=== PATIENT | female | born 1950 | race Hispanic/Latino ===

== ENCOUNTER 2025-09-24 22:24 | Emergency (ER) | payer OTHER ==
[~2025-09-24] VITALS: Ht 162.6 cm; Wt 82.6 kg
[2025-09-24 23:58] VITALS: BP 142/66; PULSE 88; RESP 20; TEMP 98.8; O2SAT 99
--- NOTE | 2025-09-25 00:15 | HMCIMG ---
EXAM: CR Right Wrist, 3 views CLINICAL HISTORY: Fall. COMPARISON: None provided. FINDINGS: Nondisplaced acute fracture in the ulnar styloid process. Questionable nondisplaced acute transverse fracture around the distal metaphysis of the radius. Mild to moderate osteoarthritis. Mild diffuse soft tissue swelling around the wrist. The remaining bones are intact. IMPRESSION: Nondisplaced acute fracture in the ulnar styloid process. Questionable nondisplaced acute transverse fracture around the distal metaphysis of the radius. /[place]
--- NOTE | 2025-09-25 00:17 | HMCIMG ---
EXAM: CR Right Elbow, 3 views CLINICAL HISTORY: Fall. COMPARISON: None provided. FINDINGS: No acute fracture or aggressive appearing osseous lesion. Mild osteopenia. Mild osteoarthritis. Enthesopathy around the common extensor origin. IMPRESSION: No acute bony abnormality is evident. Degenerative changes. /[place]
--- NOTE | 2025-09-25 00:18 | HMCIMG ---
EXAM: CR Right Shoulder, 2 views CLINICAL HISTORY: Pain. COMPARISON: None provided. FINDINGS: No acute fracture or aggressive appearing osseous lesion. Mild osteopenia. Moderate osteoarthritis in the acromioclavicular joint. Mild osteoarthritis in the glenohumeral joint. The soft tissues are unremarkable. IMPRESSION: No acute bony abnormality is evident. Degenerative changes. /[place]
--- NOTE | 2025-09-25 00:19 | ERN ---
General Chief Complaint: Mechanical Fall Stated Complaint: C/O PAIN TO RT SHOULDER, RT ELBOW, RT WRIST Time Seen by MD: 22:34 Source: patient History of Present Illness Initial Comments 75-year-old female who fell onto her right side playing pickleball hitting her right shoulder elbow and wrist on the pickleball court. She did not fall forward onto an outstretched hand she fell onto her side. She comes in for evaluation. Timing/Duration: 1-3 hours Allergies: Coded Allergies: acetaminophen (Unverified Allergy, Unknown, 09/24/25) atorvastatin (Unverified Allergy, Unknown, 09/24/25) hydrocodone (Unverified Allergy, Unknown, 09/24/25) oxycodone (Unverified Allergy, Unknown, 09/24/25) Past Medical History Past Medical History: Asthma, COPD, Diabetes-Type II, Hypertension, Other Medical History Other: [facility] Past Surgical History: Appendectomy, ROS Dictation Review of systems is negative. Beyond pain in her right shoulder right elbow and right wrist. Physical Exam Extremities Comment There are no obvious deformities in the patient's right shoulder humerus forearm or hand. There is some slight swelling and bruising in the patient's right hand. There is mild tenderness to palpation to the patient's right metacarpal bones. There is minimal tenderness to the right radial and ulnar styloid processes. Patient has no difficulty flexing and extending her elbow or moving her shoulder. Right Hand neurovascular intact. Results EKG/XRAY/US/CT/MRI X-RAY Comment No obvious fracture or dislocations in the patient's right shoulder or right elbow. No obvious cortex discontinuities. Patient's right hand and wrist have no obvious deformities or cortical dislocations or cortical brakes. MDM Plain films of the patient's right shoulder right elbow and right hand were obtained. ED Course Orders Procedure Category Date Status Time Shoulder Comp 2+Vws Rt RAD 09/24/25 Taken 22:34 Wrist Comp 3+Vws Rt RAD 09/24/25 Taken 22:34 Elbow Comp 3+Vws Rt RAD 09/24/25 Taken 22:34 Vital Signs Date Time Temp Pulse Resp B/P (MAP) Pulse Ox O2 Delivery O2 Flow Rate FiO2 09/24/25 23:58 98.8 88 20 142/66 99 Room Air* 0 21 09/24/25 22:27 97.2 62 20 187/77 96 Room Air DX & DISP Disposition: Discharge Departure Condition: Stable Assign Patient to: There were no obvious fractures on the films of your right wrist right elbow and right shoulder. No obvious dislocations either. I recommend you follow-up with a orthopedic surgeon who specializes in hands to review the films and examine you to be sure there are no fractures. In the meantime protect the arm in a sling. Treat it with ice and elevation. Treat the pain with ibuprofen and Tylenol. Referrals: ANDREA BABB MD (PCP) JERI HOUSTON MD, GORDON K MD Sep 25, 2025 00:19
== END 2025-09-25 00:35 | disposition home or self-care (01) ==
LOC: EDH 22:24
DX: S52.614A Nondisplaced fracture of right ulna styloid process, initial encounter for closed fracture (principal); M25.511 Pain in right shoulder; E11.9 Type 2 diabetes mellitus without complications; G20.A1 Parkinson's disease without dyskinesia, without mention of fluctuations; I10 Essential (primary) hypertension; J44.9 Chronic obstructive pulmonary disease, unspecified; Z88.5 Allergy status to narcotic agent; Z90.49 Acquired absence of other specified parts of digestive tract; W18.39XA Other fall on same level, initial encounter; Y93.73 Activity, racquet and hand sports; Y92.89 Other specified places as the place of occurrence of the external cause; Y99.8 Other external cause status
CPT/HCPCS: 73030; 73080; 73110; 99284